=== PATIENT | female | born 1940 | race Caucasian/White ===

== ENCOUNTER 2016-07-16 09:05 | Day surgery (SDC) | payer OTHER ==
[2016-07-15 09:54] VITALS: BMI 25.3
[2016-07-16 09:28] LABS: URINE APPEARANCE CLEAR; URINE BILIRUBIN NEGATIVE (NEGATIVE); URINE COLOR YELLOW; URINE GLUCOSE (UA) NEGATIVE (NEGATIVE); URINE KETONE NEGATIVE (NEGATIVE); URINE NITRITE NEGATIVE (NEGATIVE); URINE PROTEIN NEGATIVE (NEGATIVE); URINE UROBILINOGEN NEGATIVE E.U./dl (0.2-1.0)
[2016-07-16 09:29] LABS: URINE BLOOD 2+ (NEGATIVE); URINE LEUK ESTERASE 2+ (NEGATIVE)
[2016-07-16 09:37] LABS: URINE MUCUS RARE; URINE RBC 16 /hpf (0-3); URINE WBC 3 /hpf (3-5)
[2016-07-16] MEDS ORDERED: LIDOCAINE HCL 1%, 10 MG/ML (20ML VIAL) ONE (12:25)
[2016-07-16] MEDS ORDERED: MIDAZOLAM HCL 2 MG/2 ML SINGLE DOSE VIAL ONE (13:02)
[2016-07-16] MEDS ORDERED: ceFAZolin SODIUM 1 GM VIAL ONE (13:09)
[2016-07-16] MEDS ORDERED: ceFAZolin SODIUM 1 GM VIAL IVPB ONE (13:11)
[2016-07-16] MEDS ORDERED: LIDOCAINE HCL 1%, 10 MG/ML (50 mL VIAL) IJ ONE (13:25)
[2016-07-16] MEDS ORDERED: KETOROLAC TROMETHAMINE 30 MG/1 ML VIAL ONE (13:27)
[2016-07-16] MEDS ORDERED: ACETAMINOPHEN 1000 MG/100 ML VIAL (NON FORMULARY) IVPB PRN (14:04)
[2016-07-16] MEDS ORDERED: oxyCODONE HCL 5 MG TABLET PO PRN (14:04)
[2016-07-16] MEDS ORDERED: ONDANSETRON 4 MG/2 ML VIAL IVPUSH PRN (14:04)
[2016-07-16] MEDS ORDERED: LACTATED RINGERS SOLUTION 1,000 ML IV SCH (14:15)
[2016-07-16] MEDS ORDERED: ACETAMINOPHEN 1000 MG/100 ML VIAL (NON FORMULARY) IVPB ONE (14:30)
[2016-07-16 14:49] VITALS: TEMP 97.6
--- NOTE | 2016-07-16 14:49 | OP ---
DATE OF OPERATION: 07/16/2016 PREOPERATIVE DIAGNOSIS: Left breast atypia. POSTOPERATIVE DIAGNOSIS: Left breast atypia. PROCEDURE: Left breast wire localized lumpectomy. SURGEON: Donna Russell MD ANESTHESIA: Local and IV sedation. ESTIMATED BLOOD LOSS: Minimal. COMPLICATIONS: None. This is a sterile procedure. INDICATIONS: The patient presented with a mammogram and ultrasound. The ultrasound noted a nodule that is in the left breast at 2:30 to 3 o'clock location 1 cm from the nipple. A needle biopsy of this showed an area of atypia, atypical ductal hyperplasia. My recommendation was an excision to make sure there was no further upgrade in the lesion. The procedure was discussed with all of the questions answered. PROCEDURE IN DETAIL: The patient was brought to [facility] and taken to breast imaging where a wire was used to localize the clip in the outer left breast. She was then brought up to the operating room. After IV sedation and IV antibiotics, the left breast was prepped and draped in the usual sterile fashion. A radial incision was made in the left breast 4 o'clock location, which is the area in between the entry of the wire and the area, which was biopsied. Wire was used as a guide to get down to the area. This was excised en bloc and tagged with a long stitch lateral and short stitch superior and sent for a specimen radiograph. Hemostasis assured with electrocautery. A specimen radiograph showed the clip and the wire to be intact on the specimen. At this point, once hemostasis was assured, the parenchyma was approximated with interrupted 2-0 Vicryl. Skin was approximated with interrupted 3-0 Vicryl and running 4-0 Prolene. A sterile dressing with Tegaderm and 4x4s was applied. She tolerated the procedure well and was taken to the recovery room in good condition. Perla [id number]
[2016-07-16 16:41] VITALS: BP 110/66; PULSE 84
--- NOTE | 2016-07-20 08:10 | PATH ---
Surgical Pathology Report Patient Name: MITZI HORTON [facility]. Rec. #: [id number] /Age/Gender: 1940 (Age: 76) / F Account: [id number] Location: [facility] SURGICAL Taken: 07/16/2016 Received: 07/16/2016 Reported: 07/20/2016 Physicians: Donna Russell M.D. Specimen(s) Received LEFT BREAST LUMPECTOMY Clinical History Atypia Microcalcifications Final Diagnosis BREAST, LEFT, LUMPECTOMY: ATYPICAL DUCTAL HYPERPLASIA (ADH). PRIOR BIOPSY SITE CHANGES IDENTIFIED BACKGROUND OF FIBROCYSTIC CHANGES WITH FLORID USUAL DUCTAL HYPERPLASIA, ADENOSIS, FOCAL COLUMNAR CELL CHANGE, APOCRINE METAPLASIA, DUCT DILATATION, CYST FORMATION AND STROMAL FIBROSIS WITH ASSOCIATED MICROCALCIFICATIONS; SMALL INTRADUCTAL PAPILLOMA. Electronically Signed Eliu Snyder M.D. Gross Description Received fresh on an AccuGrid labeled "left breast lumpectomy" is a 4.7 x 3.8 x 1.5 cm irregular portion of fibroadipose tissue with a needle localization wire present. There is a short suture marking the superior aspect and a long suture marking the lateral aspect of the specimen, per the surgeon. The specimen is inked as follows: Superior and lateral blue; inferior green; medial yellow; anterior red; deep black. The specimen is serially sectioned from superior to inferior. Sectioning reveals abundant dense, white fibrous tissue with focal calcifications. No definitive mass is identified. The specimen is entirely and sequentially submitted in 10 cassettes with the superior margin in cassette 1, the inferior margin in cassette 10 and the ossification seen in cassettes 6-7. Time to fixation: not indicated Total formalin fixation time: ~8 hours 07/16/201607/16/2016
== END 2016-07-16 16:43 | disposition home or self-care (01) ==
LOC: JASU-SURG 09:05
PROVIDERS: ATTEND Surgery
PROC: 0HBU0ZZ Excision of Left Breast, Open Approach (ICD-10-PCS; principal; 2016-07-16 12:00)
DX: N60.92 Unspecified benign mammary dysplasia of left breast (principal)
CPT/HCPCS: 19281; 81003; 81015; 88307-TC; 94760

== ENCOUNTER 2021-12-22 16:00 | Emergency (ER) | payer OTHER ==
[2021-12-22 16:10] VITALS: RESP 19; TEMP 97.8; BMI 27.8
[2021-12-22] MEDS ORDERED: MECLIZINE HCL 12.5 MG TABLET PO ONE (17:33)
[2021-12-22 17:55] VITALS: BP 131/80; PULSE 78
[2021-12-22] MEDS ORDERED: MECLIZINE HCL 25 MG TABLET (FP) PO ONE (18:05)
[2021-12-22] MEDS ORDERED: SODIUM CHLORIDE 0.9% 500 ML INFUS.BAG IV ONE (18:05)
[2021-12-22] MEDS ORDERED: MECLIZINE HCL 25 MG TABLET (FP) ONE (18:16)
[2021-12-22 19:49] LABS: BASO % 0.8 % (0-2.0); EOS % 0.2 % (0-4.5); HEMATOCRIT 42.1 % (32.4-45.2); HEMOGLOBIN 14.1 GM/dL (10.7-15.3); LYMPH % 19.3 % (8-40); MCH 31.4 pg (25.7-33.7); MCHC 33.5 g/dl (32.0-36.0); MEAN CELL VOLUME 93.7 fl (80-96); MEAN PLT VOLUME 11.5 fl (7.5-11.1); MONO % 7.2 % (3.8-10.2); NEUT % 72.5 % (42.8-82.8); PLATELET COUNT 200 10^3/uL (134-434); RBC 4.49 M/mm3 (3.60-5.2); RDW 15.2 % (11.6-15.6); WHITE BLOOD COUNT 10.2 K/mm3 (4.0-10.0)
[2021-12-22 19:53] LABS: EPI CELLS 6 /uL (0-25.1); HYALINE CASTS 0 /uL (0-3.1); URINE APPEARANCE CLEAR; URINE BACTERIA 53 /uL (0-1359); URINE BILIRUBIN NEGATIVE (NEGATIVE); URINE COLOR YELLOW; URINE GLUCOSE (UA) NEGATIVE (NEGATIVE); URINE KETONE NEGATIVE (NEGATIVE); URINE LEUK ESTERASE TRACE (NEGATIVE); URINE NITRITE NEGATIVE (NEGATIVE); URINE PROTEIN NEGATIVE (NEGATIVE); URINE RBC 12 /uL (0-23.9); URINE UROBILINOGEN 0.2 mg/dL (0.2-1.0); URINE WBC 10 /uL (0-25.8)
[2021-12-22 20:13] LABS: CALCIUM 10.1 mg/dL (8.5-10.1)
[2021-12-22 20:14] LABS: BLOOD UREA NITROGEN 18.9 mg/dL (7-18)
[2021-12-22 20:17] LABS: CREATININE 0.8 mg/dL (0.55-1.3)
[2021-12-22 20:18] LABS: TOT PROT 7.1 g/dl (6.4-8.2)
[2021-12-22 20:19] LABS: BILIRUBIN,TOTAL 0.4 mg/dL (0.2-1)
== END 2021-12-22 21:15 | disposition home or self-care (01) ==
LOC: JER 16:00
DX: R55 Syncope and collapse (principal)
CPT/HCPCS: 36415; 70450-TC; 71045-TC-FY; 80053; 81003; 84484; 85025; 87086; 93005; 93010; 99285-25